=== PATIENT | female | born 1965 | race Caucasian/White ===

== ENCOUNTER → 2022-01-17 10:33 | Outpatient (CLI) | payer OTHER, SELFPAY ==
--- NOTE | 2022-01-17 10:42 | XR_ITS ---
FINAL REPORT CLINICAL HISTORY: right knee pain FINDINGS: RIGHT KNEE 4 views of the right knee were obtained. There is no acute fracture or dislocation. There are moderate hypertrophic changes at the medial joint margin. There is marked narrowing of the medial compartment joint space. There is moderately advanced patellofemoral joint space narrowing. There is a prominent osteophyte along the undersurface of the patella. There appear to be small intra-articular loose bodies in the anterior joint space measuring up to 1 cm. IMPRESSION: Advanced medial and patellofemoral joint space narrowing consistent with osteoarthritis with intra-articular loose bodies. Reviewed, Interpreted and Dictated by Dante Dos Santos MD Transcribed by Kalee Muir Authenticated and [facility]
== END ==
PROVIDERS: Visit Provider Orthopaedic Surgery
DX: M25.561 Pain in right knee (principal)
CPT/HCPCS: 73564

== ENCOUNTER → 2023-04-02 08:26 | Outpatient (CLI) | payer OTHER, SELFPAY ==
--- NOTE | 2023-04-02 08:51 | XR_ITS ---
FINAL REPORT CLINICAL HISTORY: Pre Op, SOA COMPARISON: None FINDINGS: Two views of the chest were obtained. The heart size and pulmonary vascularity are within normal limits. The mediastinum is normal. No acute pulmonary abnormality is identified. There is no pneumothorax. The bony thorax is intact. IMPRESSION: No active cardiopulmonary disease. Reviewed, Interpreted and Dictated by Marc Elam III, MD Transcribed by Marisa Agee Authenticated and [facility]
[2023-04-02 09:07] LABS: Basophils % 0.5 % (0.1-2.0); Eosinophils # 0.2 K/mm3 (0.0-0.4); Eosinophils % 3.5 % (0.1-12.0); Hematocrit 43.5 % (37.0-47.0); Hemoglobin 14.1 g/dL (12.2-16.2); Lymphocytes # 1.4 K/mm3 (0.7-4.5); Lymphocytes % 25.4 % (10-50); Mean Corpuscular HGB Conc 32.4 g/dL (31.8-35.4); Mean Corpuscular Hemoglobin 27.7 pg (27.0-31.2); Mean Corpuscular Volume 85.3 fl (81-99); Mean Platelet Volume 8.8 fl (7.4-10.4); Monocytes # 0.4 K/mm3 (0.1-1.0); Monocytes % 6.4 % (1.7-9.3); Neutrophils # 3.7 K/mm3 (1.8-7.8); Neutrophils % 64.3 % (37.0-80.0); Platelet Count 230 K/mm3 (142-424); White Blood Count 5.7 K/mm3 (4.8-10.8)
--- NOTE | 2023-04-02 09:12 | ECG_ITS ---
APPROVED REPORT Exam: Resting ECG HR:63 bpm ECG Measurements Heart Rate 63 AXES MS 162 P 65 QRSd 96 QRS 66 QT 375 T 46 QTc 382 Conclusion SINUS RHYTHM LOW QRS VOLTAGE IN PRECORDIAL LEADS [QRS DEFLECTION < 1.0 mV IN CHEST LEADS] BORDERLINE ECG UNCONFIRMED REPORT Electronically signed by : Damien Diallo MD 04/02/2023 17:35:18
[2023-04-02 10:46] LABS: Chloride 106 mmol/L (98-107)
[2023-04-02 10:47] LABS: Potassium 4.4 mmoL/L (3.5-5.1); Sodium 139 mmol/L (136-145)
[2023-04-02 10:49] LABS: Alanine Aminotransferase 25 U/L (12-78); Alkaline Phosphatase 78 U/L (38-126); Anion Gap 8.4 mEq/L (5-15); Aspartate Amino Transferase 36 U/L (14-36); Bilirubin,Total 0.7 mg/dl (0.2-1.3); Blood Urea Nitrogen 15 mg/dl (7-17); Carbon Dioxide 29 mmol/L (22.0-30.0); Estimated Glomerular Filt Rate 73 ml/min (>60); GFR (African American) 89 ML/MIN (>60)
[2023-04-02 10:50] LABS: Albumin Level 4.1 g/dl (3.5-5.0); Albumin/Globulin Ratio 1.6 (1.1-1.8); Calcium 9.4 mg/dl (8.4-10.2); Globulin 2.6 g/dL (1.3-3.2); Glucose 85 mg/dl (74-100); Total Protein,Serum 6.7 g/dl (6.3-8.2)
== END ==
PROVIDERS: PCP Family Medicine; Visit Provider Orthopaedic Surgery
DX: Z01.818 Encounter for other preprocedural examination (principal); M17.11 Unilateral primary osteoarthritis, right knee; Z79.899 Other long term (current) drug therapy
CPT/HCPCS: 36415; 71046; 80053; 83036; 85025; 93005

== ENCOUNTER 2023-04-10 06:18 | Observation (INO) | payer OTHER, SELFPAY ==
[2023-04-06 13:28] VITALS: BMI 28.8
[2023-04-10] VITALS (18 sets, daily range): BP systolic 99–145; BP diastolic 35–86; PULSE 63–107; RESP 14–18; TEMP 36.1–37.1; O2SAT 96–100
--- NOTE | 2023-04-10 07:21 | EXP.ANES.CKL ---
[facility] Disclaimer: The information contained in this section may have been updated after the patient was seen, as this information can be updated by other users. Medical History No significant past medical history Surgical History History of appendectomy History of cholecystectomy History of colonoscopy History of knee replacement History of tonsillectomy Family History Other Family history of diabetes mellitus type II Family history of hyperlipidemia Family history of hypertension Lung cancer Social History Smoking Status: Never smoker second hand exposure: No alcohol intake: current substance use type: denies use current occupational status: retired Travel in the last 8 weeks: None [facility] Anesthesia Checklist Patient Identification Patient Identification: Arm Band and Verbal (Name & ) Structural Data Admitted From: Home Planned Operative Procedure/s: TKA Consent for Planned Operative Procedure(s) Verified: Yes NPO Status Verified Time NPO: 00:00 Chart Verification Results Verified: CBC and BMP Additional verifications Anesthesia Reactions: Yes (nausea) Hx Blood Transfusions: No Blood Transfusion Reaction: No Airway Assessment Mallampati Score:: Class I C-Spine Mobility Assessed: Yes TMJ Mobility Assessed: Yes Dentition: Good Dentition Neurological Assessment Level of Consciousness: Awake Hx Seizures: No Numbness or tingling in extremities: No Anesthesia Plan Anesthesia Risk discussed: Yes Anesthesia Plan: Verified ASA Class: I Anesthesia Type: MAC w/Spinal
--- NOTE | 2023-04-10 09:53 | EXP.OP.NOTE ---
Date of procedure: 04/10/23 Pre-op Diagnosis:: Right knee osteoarthritis Post-op Diagnosis:: Right knee osteoarthritis Procedure performed:: Right total knee arthroplasty Surgeon:: Delon Lainez MD Student Counselor(s):: None SHELL WORKER:: Tahira Meyers Anesthesia: regional, local and spinal Estimated blood loss (mL): 5 Clinical Note:: Nuha is a very pleasant 58-year-old female with activity limiting right knee pain secondary to osteoarthritis that is affecting her quality of life. No relief with a cortisone injection in December. No relief with meloxicam. History of a left knee replacement in [place] in 2007 that is doing well. Recently moved here from [place]. Not interested in any further injections. She has done a low-impact home exercise program. Right knee x-rays in December revealed severe tricompartmental degenerative changes with complete loss of medial joint space and marginal osteophyte formation in a varus knee. We discussed all the risks, benefits and alternatives to right total knee arthroplasty and she agreed to proceed. Surgical consent form was signed. Operative findings:: Right knee severe tricompartmental degenerative changes with complete loss of medial joint space and marginal osteophyte formation with varus deformity. Operative note:: The patient was seen in the preoperative holding area. The right knee was marked to confirm the correct operative site. She was seen by anesthesia. She received Ancef 2 g IV prophylactic antibiotics within 1 hour of incision time. She also received a gram of IV TXA just prior to the incision and as we were closing to help minimize bleeding. She was brought back to the OR. Spinal was performed without difficulty. IV sedation given throughout the case. She was placed in the supine position. A bump was placed underneath the right hip. Nonsterile tourniquet applied to the right thigh. Right lower extremity prepped and draped in usual sterile fashion. Timeout performed to confirm right total knee arthroplasty on patient Nuha Morton. The right lower extremity was exsanguinated with an Esmarch and tourniquet was inflated to 300 mmHg. With the knee flexed I made a midline incision with a 10 blade scalpel. Full-thickness medial and lateral flaps were elevated. With a fresh 10 blade I made a medial parapatellar arthrotomy. The patella was everted. Patella fat pad and anterior femoral fat pads were excised with the Bovie. A medial release was performed with the Bovie. Marginal osteophytes were removed. Z retractors were placed medially and laterally. Whitesides line was marked. The distal femur was then drilled. I placed the intramedullary distal femoral cutting guide set at a 5 degree valgus cut to remove approximately centimeter of bone from the distal femur. This cut was made with oscillating saw. The femur was then sized to a size 6 set at 3 degrees of external rotation. The 4-in-1 cutting guide was pinned in place. I made the anterior and posterior cuts and the chamfer cuts with oscillating saw. We then turned our attention to the tibia. I placed a PCL retractor and medial and lateral Hohmann retractors. With the extramedullary tibial cutting guide set at the 3 degree posterior slope we excised about 5 mm of bone from the low medial side and a centimeter from the high lateral side with the oscillating saw. Medial and lateral menisci and posterior osteophytes were removed. With a 10 mm block we achieved full extension and flexion with excellent alignment. We finished preparation of the tibia and the tibia was sized to a size 5 tibial tray centered off the medial third of the tibial tubercle. This tray was pinned in place and the pins were impacted. We then placed the size 6 trial femur. The box cut was made with the reamer and punch. We then placed a 10 mm trial poly. With the trial components in place there was full extension and flexion with excellent alignment and stable throughout.
--- NOTE | 2023-04-10 10:06 | XR_ITS ---
PROCEDURE INFORMATION: Exam: XR Right Knee Exam date and time: 04/10/2023 6:04 PM Age: 58 years old Clinical indication: Device placement; Joint replacement hardware; Additional info: S/P right tka TECHNIQUE: Imaging protocol: Radiologic exam of the right knee. Views: 1 or 2 views. COMPARISON: No relevant prior studies available. FINDINGS: Bones/joints: Status post total knee arthroplasty. The patient is status post patellar resurfacing. Soft tissues: Soft tissue swelling and subcutaneous gas with surgical wrapping in place. IMPRESSION: Postsurgical changes without acute injury or hardware abnormality.
--- NOTE | 2023-04-10 12:05 | PC.NURSE ---
COURTESY NOTE: afternoon round completed on pt. pt denies needing assistance at this time. call loreto within reach. Harish SRNA
--- NOTE | 2023-04-10 13:29 | HMH.OTEV ---
OT Inpatient Evaluation Rehab OT IP Evaluation Start: 04/10/23 10:07 Freq: ONCE Status: Active [facility]Rec: 04/10/23 13:29 [facility] [id number]) Rehab OT IP Assessment Subjective History Pt oriented x 3 on arrival. Pt agreeable to engage in therapy evaluation. Pt admitted on 04/10/23 following a Right total knee arthroplasty. Nuha is a very pleasant 58-year-old female with activity limiting right knee pain secondary to osteoarthritis that is affecting her quality of life. No relief with a cortisone injection in December. No relief with meloxicam. History of a left knee replacement in [place] in 2007 that is doing well. Recently moved here from [place]. Not interested in any further injections. Prior to surgery, pt lived at home with her significant other. Pt claims she is normally independent with all ADLs and IADLs. She does not use any type of AE during functional transfers. She also still drives. Subjective I will have help at home. Objective Patient Orientation Person,Place,Birthday Right Upper Extremity Gross ROM WFL Left Upper Extremity Gross ROM WFL Bed Mobility bed mobility-scooting,bed mobility - supine/sit Assist Level Minimal x 1 (25% assist) Transfer Training Sit/Stand Transfer Assist Level Contact Guard/Hand Hold Rehab OT IP prob,goals,plan Problems Date of Evaluation: 04/10/23 OT IP Problems Bed Mobility,Transfers,Balance ,Self care,Safety Rehab Potential Rehab Potential Good Equipment Needs Assistive Devices Rolling / Wheeled Walker Plan OT intervention Plan Bed Mobility,Transfers,Balance ,Self care,Safety,Therapeutic Exercise OT Plan Frequency BID Duration LOS Discharge Goals Bed Mobility Ability Standby Assistance Sit
--- NOTE | 2023-04-10 13:56 | HMH.PTEV ---
Physical Therapy Evaluation Rehab PT IP Evaluation Start: 04/10/23 10:07 Freq: ONCE Status: Active Protocol: Document 04/10/23 13:37 [facility] (Rec: 04/10/23 13:56 [facility] [id number]) Subjective/History History History Patient is a 58 year old female admitted to [facility] S/P 04/21 S/P R TKA. Patient previously independent with all ADL's/IADL's. No AD required previously for ambulation. Patient lives at home with her boyfriend. Previous hx of L TKA. Subjective Subjective I don't feel anything really right now. New diagnosis of cancer in past 12 No months? Rehab PT IP Eval Objective Appearance Patient Behavior Appropriate,Cooperative Patient Orientation Person,Place,Birthday Difficulty following instructions none Speech Pattern Clear,Appropriate Ambulation Patient Able to Ambulate No Balance Ability to Arise Able, uses arms to help Sitting Balance Steady, safe Standing Balance Steady, wide stance Dynamic Sitting Balance Ability Normal Dynamic Standing Balance Ability Good Transfers Bed Transfer Ability Minimal x 1 (25% assist) Sit to Stand Bed Transfer Ability Contact Guard/Hand Hold Pain Knee Pain Intensity 0 ROM RLE PT ROM Status ABN MMT RLE PT MMT ABN Rehab PT IP prob,goals,plan Problems Date of Evaluation: 04/10/23 PT IP Problems Bed Mobility,Transfers,Gait, Balance,Self care,Safety Rehab Potential Rehab Potential Good Equipment Needs Assistive Devices None / NA Plan PT Intervention Plan Bed Mobility,Transfers,Gait, Balance,Self care,Safety, Therapeutic Exercise PT Plan Frequency BID Duration LOS Discharge Goals Bed Transfer Ability Supervision/Stand by Sit to Stand Chair Transfer Ability Supervision/Stand by Ambulation Distance (feet) 20 Discharge Plan PT Discharge Plan PT suggests patient is a good candidate for discharge to home with home health or progress to outpatient PT when found medically stable by . Eval Complexity Eval Charge Codes 04404 - High Complexity
--- NOTE | 2023-04-10 13:59 | EXP.HP ---
History of Present Illness *Admission Date: 04/10/23 *Reason for visit:: Status post right TKA *History of present illness: Ms. Betts is a 58-year-old female with chronic pain of her right knee and primary osteoarthritis. She has been seeing orthopedics as an outpatient with no improvement from symptomatic treatment and conservative medical management. She presented to orthopedics and was scheduled for right total knee arthroplasty today. Had left knee replaced in 2007 without issue. Patient has no underlying medical conditions. Tolerated procedure well without any complication. Admitted to medicine afterward for further management overnight. After arrival to the floor, patient has minimal pain. Stable on room air. No nausea or vomiting or chest pain. [facility] Disclaimer: The information contained in this section may have been updated after the patient was seen, as this information can be updated by other users. Medical History No significant past medical history Surgical History History of appendectomy History of cholecystectomy History of colonoscopy History of knee replacement History of tonsillectomy Family History Family history of hypertension Family history of diabetes mellitus type II Lung cancer Family history of hyperlipidemia Social History Smoking Status: Never smoker second hand exposure: No alcohol intake: current substance use type: denies use current occupational status: retired Travel in the last 8 weeks: None Review of Systems Review of Systems Review of systems (narrative): 14 point review of systems performed, pertinent positives and negatives as per [facility] Meds Home Medications and Allergies Home Medications Medication Instructions Recorded Confirmed Type aspirin 325 mg tablet 325 mg PO DAILY #20 tabs 04/10/23 04/10/23 Rx aspirin 325 mg tablet 325 mg PO ONCE #20 tabs 04/10/23 04/10/23 Rx oxycodone 5 mg tablet 5 mg PO Q4H PRN pain #30 tabs 04/10/23 04/10/23 Rx New Prescriptions to Start Prescriptions: aspirin 325 mg tablet aspirin 325 mg tablet oxycodone 5 mg tablet Allergies Allergy/AdvReac Type Severity Reaction Status Date / Time codeine Allergy Rash Verified 04/10/23 06:22 Penicillins Allergy Rash Verified 04/10/23 06:22 Exam Data for Last 24 hours Vital signs and Labs for Last 24 Hours: Temp Pulse Resp BP Pulse Ox O2 Del Method O2 Flow Rate 97 F L 91 H 14 130/73 99 Room Air 3 04/10/23 10:05 04/10/23 10:05 04/10/23 10:05 04/10/23 10:05 04/10/23 10:05 04/10/23 10:05 04/10/23 09:55 I & O for Last 24 hours: Intake & Output 04/07/23 04/08/23 04/09/23 04/10/23 23:59 23:59 23:59 23:59 Intake Total 120 / 120 Balance 120 / 120 Constitutional Constitutional: no acute distress and average body habitus *Routine HEENT Exam Head: Present normocephalic Eye: Present EOMI and PERRL ENT: Present mucous membranes moist *Routine Neck Exam Neck: Present supple; Absent lymphadenopathy *Routine Respiratory Exam Respiratory: Present CTA bilaterally *Routine Cardiovascular Exam Cardiovascular: Present RRR *Routine Abdominal Exam Abdominal: Present soft and normoactive bowel sounds; Absent tenderness *Routine Rectal Exam Rectal:: deferred *Routine Genitalia Exam Genitalia:: deferred *Routine Extremities Exam Extremities: Absent cyanosis, clubbing or edema Comments: Neurovascularly intact distal and feet bilaterally, well-healed scar over left knee. Right knee in postop bandage. *Routine Skin Exam Skin: Present warm; Absent rash *Routine Neurological Exam Neurological: Present alert, oriented X3 and moving all extremities; Absent altered mental status Assessment and Plan *Assessment and plan (1) P
--- NOTE | 2023-04-10 14:00 | PC.NURSE ---
Rounded on patient. No needs or concerns at this time;
--- NOTE | 2023-04-10 18:49 | PC.NURSE ---
Patient new admit from PACU. Patient admitted with a rt total knee replacement. Patient had c/o pain after arriving on unit. Patient has nut had uop since arriving to unit MD aware. Patient states she will try in a few minutes. Patient A&Ox4 and VSS.
[2023-04-11] VITALS: BP 123/65; PULSE 89; RESP 16; TEMP 37.1; O2SAT 100
[2023-04-11 04:00] VITALS: BP 103/53; PULSE 93; RESP 18; TEMP 37.1; O2SAT 96; BMI 30.6
[2023-04-11 06:26] LABS: Chloride 109 mmol/L (98-107); Sodium 136 mmol/L (136-145)
[2023-04-11 06:29] LABS: Alanine Aminotransferase 36 U/L (12-78); Albumin Level 3.1 g/dl (3.5-5.0); Albumin/Globulin Ratio 1.3 (1.1-1.8); Alkaline Phosphatase 62 U/L (38-126); Aspartate Amino Transferase 44 U/L (14-36); Bilirubin,Total 0.6 mg/dl (0.2-1.3); Blood Urea Nitrogen 12 mg/dl (7-17); Carbon Dioxide 26 mmol/L (22.0-30.0); Creatinine Clearance Estimated 144 mL/min (50-200); Estimated Glomerular Filt Rate 102 ml/min (>60); GFR (African American) 123 ML/MIN (>60); Globulin 2.4 g/dL (1.3-3.2); Glucose 113 mg/dl (74-100); Total Protein,Serum 5.5 g/dl (6.3-8.2)
[2023-04-11 06:30] LABS: Magnesium 1.9 mg/dl (1.6-2.3)
--- NOTE | 2023-04-11 07:32 | EXP.DC.SUM ---
General Admission date:: 04/10/23 Discharge date: 04/11/23 HPI HPI HPI: Ms. Betts is a 58-year-old female with chronic pain of her right knee and primary osteoarthritis. She has been seeing orthopedics as an outpatient with no improvement from symptomatic treatment and conservative medical management. She presented to orthopedics and was scheduled for right total knee arthroplasty today. Had left knee replaced in 2007 without issue. Patient has no underlying medical conditions. Tolerated procedure well without any complication. Admitted to medicine afterward for further management overnight. After arrival to the floor, patient has minimal pain. Stable on room air. No nausea or vomiting or chest pain. Hospital Course Hospital Course Hospital Course: 58-year-old female with primary osteoarthritis of her knees. Status post right TKA today. Discussed case with orthopedics, request admission for observation overnight, early mobilization, and management of pain. Medicine agreed to admit for further management. Hemodynamically stable at this time. No issues overnight. Stable for discharge home. Plan for outpatient therapy. Problems addressed as follows: Primary osteoarthritis of right knee Status post TKA right knee -Tolerated procedure well. Orthopedics has sent medications for discharge home including pain regimen and aspirin. Will continue aspirin 325 mg daily for 3 weeks postop DVT prophylaxis. Stable overnight. Tolerating oxycodone 5 for pain control. PT and OT evaluated, referral sent for outpatient PT in [place]. Stable for discharge home with follow-up with orthopedics in the next 2 weeks. Exam Data for Last 24 hours Vital signs and Labs for Last 24 Hours: Temp Pulse Resp BP Pulse Ox O2 Del Method O2 Flow Rate 98.8 F 93 H 18 103/53 L 96 Room Air 3 04/11/23 04:00 04/11/23 04:00 04/11/23 04:00 04/11/23 04:00 04/11/23 04:00 04/11/23 07:00 04/10/23 09:55 Laboratory Results - last 24 hr 04/11/23 05:55: Sodium 136, Potassium 4.0, Chloride 109 H, Carbon Dioxide 26, Anion Gap 5.0, BUN 12, Creatinine 0.60, Estimated Creat Clear 144, Estimated GFR 102, Est GFR ( Amer) 123, Glucose 113 H, Calcium 8.0 L, Magnesium 1.9, Total Bilirubin 0.6, AST 44 H, ALT 36, Alkaline Phosphatase 62, Total Protein 5.5 L, Albumin 3.1 L, Globulin 2.4, Albumin/Globulin Ratio 1.3 I & O for Last 24 hours: Intake & Output 04/08/23 04/09/23 04/10/23 04/11/23 23:59 23:59 23:59 23:59 Intake Total 360 / 360 1989 Output Total 400 / 400 Balance -40 / -40 1989 Weight 91.58 kg Constitutional Constitutional: no acute distress *Routine HEENT Exam Head: Present normocephalic Eye: Present EOMI and PERRL ENT: Present mucous membranes moist *Routine Neck Exam Neck: Present supple; Absent lymphadenopathy *Routine Respiratory Exam Respiratory: Present CTA bilaterally; Absent rhonchi, wheezes or crackles *Routine Cardiovascular Exam Cardiovascular: Present RRR *Routine Abdominal Exam Abdominal: Present soft and normoactive bowel sounds; Absent tenderness *Routine Extremities Exam Extremities: Absent cyanosis, clubbing or edema Comments: Right leg in postsurgical wrap, neurovascularly intact in feet. No edema. *Routine Skin Exam Skin: Present warm; Absent rash *Routine Neurological Exam Neurological: Present alert, oriented X3 and moving all extremities; Absent altered mental status Results Data Completed and Pending Labs on day of discharge: Labs from last 24 hours 04/11/23 05:55 Sodium 136 Potassium 4.0 Chloride 109 H Carbon Dioxide 26 Anion Gap 5.0 BUN 12 Creatinine 0.60 Estimated Creat Clear 144 Estimated GFR 102 Est GFR ( Amer) 123 Glucose 113 H Calcium 8.0 L Magnesium 1.9 Total Bilirubin 0.6 AST 44 H ALT 36 Alkaline Phosphatase 62 Total Protein 5.5 L Albumin 3.1 L Globulin 2.4 Albumin/Globulin Ratio 1.3 DS: Diagnosis Discharge
[2023-04-11 07:41] LABS: Basophils % 0.4 % (0.1-2.0); Eosinophils # 0.1 K/mm3 (0.0-0.4); Eosinophils % 0.9 % (0.1-12.0); Lymphocytes # 0.9 K/mm3 (0.7-4.5); Lymphocytes % 12.4 % (10-50); Mean Corpuscular HGB Conc 33.4 g/dL (31.8-35.4); Mean Corpuscular Hemoglobin 27.7 pg (27.0-31.2); Mean Corpuscular Volume 82.9 fl (81-99); Monocytes # 0.7 K/mm3 (0.1-1.0); Monocytes % 10.3 % (1.7-9.3); Neutrophils # 5.3 K/mm3 (1.8-7.8); Platelet Count 178 K/mm3 (142-424); Red Blood Count 3.98 M/mm3 (4.20-5.40); Red Cell Distribution Width 14.1 % (11.5-17.5)
[2023-04-11 07:42] VITALS: BP 119/69; PULSE 87; RESP 17; TEMP 36.9; O2SAT 96
--- NOTE | 2023-04-11 09:56 | SW/DCPLANNER ---
The plan for this patient is to return home w/ her friend in [place] and go to outpatient PT in [place]. Patient will discharge home today.
--- NOTE | 2023-04-12 07:29 | EXP.ANES.II ---
[facility] Anesthesia Record Part II Anesthesia Record Part II Discharge Time: 10:05 Destination: Medical Surgical Department PACU nurse assessment reviewed?: Yes Patient Condition:: Good Anesthesia Complications:: None Swallowing reflex intact?: Yes Airway Patency: Patent Cyanosis?: No Blood Pressure: 130/73 SaO2: 99 Respiratory Rate: 14 Pulse Rate: 91 Temperature: 97 F Mental Status: Alert & Oriented Pain level:: 0 Nausea and/or vomitting:: None Intake, IV Amount: 0 Hydration: Adequate
[2023-04-12 07:30] VITALS: BP 130/73; PULSE 91; RESP 14; TEMP 36.1; O2SAT 99
--- NOTE | 2023-04-12 13:02 | CARE MANAGER ---
Contacted patient related to hospital discharge. She states she is doing well, just has to take her time doing things. She denies any questions or concerns. She has her pain medication and is aware of follow up appointments. CHELLY Dumont
== END 2023-04-11 12:19 | disposition home or self-care (01) ==
LOC: 2ND 06:18
PROVIDERS: Admitting Provider Orthopaedic Surgery; PCP Family Medicine; Visit Provider Internal Medicine Adolescent Medicine
PROC: (CPT 27447; principal; 2023-04-10 07:30)
DX: M17.11 Unilateral primary osteoarthritis, right knee (principal); M25.561 Pain in right knee
CPT/HCPCS: 27447; 36415; 73560; 80053; 83735; 85025; 96374; 97163; 97166; 97530; C1713; C1776; G0378; J2405

== ENCOUNTER 2023-05-02 14:21 | Outpatient (CLI) | payer OTHER, SELFPAY ==
--- NOTE | 2023-05-02 14:29 | XR_ITS ---
FINAL REPORT CLINICAL HISTORY: Rt Knee replacement COMPARISON: None FINDINGS: Three views of the right knee reveal no evidence of fracture or dislocation. The patient has undergone a prior total knee arthroplasty. The bony alignment is normal. There is no evidence of joint effusion. Mild soft tissue calcifications are noted. IMPRESSION: Total knee arthroplasty. No acute abnormality identified. Reviewed, Interpreted and Dictated by Marc Elam III, MD Transcribed by Ayleen Clark Authenticated and [facility]
== END 2023-05-02 23:59 ==
LOC: RAD 14:22
PROVIDERS: PCP Family Medicine; Visit Provider Orthopaedic Surgery
DX: Z96.651 Presence of right artificial knee joint (principal)
CPT/HCPCS: 73562

== ENCOUNTER 2023-06-14 11:00 | Outpatient (RCR) | payer OTHER, SELFPAY ==
--- NOTE | 2023-04-16 12:40 | HMH.PTOPEV ---
PT Outpatient Evaluation Rehab PT Outpatient Evaluation Start: 04/16/23 11:52 Freq: Status: Active Protocol: Document 04/16/23 11:52 PDESEROUX (Rec: 04/16/23 12:39 PDESEROUX [id number]) E-signed By Marek Suarez, PT Outpatient Therapy Subjective History Subjective History Pt. is a 58 year old female who presents to [facility] Outpatient Physical Therapy Services in [place] for the initial evaluation this date(04/16/23) w/ c/o acute and constant RLE knee post-surgical edema, P!, and weakness S/P RLE TKA on 04/10/23. Pt. reports spending the night in the hospital post surgery, then going home the next day on 04/11/23. Pt. reports seeing Physical Therapy the day of surgery and the day after prior to being discharged home. Pt. reports icing RLE knee all day. Pt. reports ambulating short distances at home at this time , states back and forth to the bathroom. Pt. reports RTMD(Surgeon) 05/12/23, RTMD to PCP(Dr. Herman) 04/26/23. Current medications include Aspirin and Oxycodone. PMH includes S/P LLE TKA, Tonsillectomy, Appendectomy, Cholecystectomy, and family history of lung cancer(father) . New diagnosis of cancer in past 12 No months? Chief Complaint Pain,Spasms,Stiff,Swelling, Gives out/Unstable,Paresthesia ,Weakness Symptom Type Ache,Dull,Stabbing,Burning, Numbness Symptoms Relieved By Rest/Positioning,Ice,Brace/ Support,Prescription Meds Symptoms Aggravated By Standing,Bending/Stooping, Physical Activity,Twisting, Walking,Lifting Prior Functional Limitations None Current Functional Limitations Lifting,Housework,Dressing, Driving,Sleeping,Standing, Sitting,Squatting,Recreation Activity,Walking,Stairs, Bending/Stooping Symptom Description Constant but Variable,Activity Dependent Level of pain today (0-10) 2 Pain scale - at its best (0-10) 1 Pain scale - at its worst (0-10) 7 Hip/Knee Eval Gait Observation General Gait Pattern Observation Antalgic Gait,Decrease Weight Bear (L),Decrease Stride Lngth (R) Assistive Device Assistive Devices Rolling / Wheeled Walker Palpation Tenderness right Knee Palpation Finding Tenderness,Spasm,Muscle Guarding Knee Palpation Overall Comment grade 4 +TTP to vastus medialis/lateralis, medial jt. line, pes anserine MMT Hip Flexion Strength Grade 3- Fair- Hip Abduction Strength Grade 3+ Fair+ Hip Adduction Strength Grade 3+ Fair+ Hip Extension Strength Grade 3+ Fair+ Gluteus Arik Strength Grade 3+ Fair+ Hip External Rotation Strength Grade 3- Fair- Hip Internal Rotation Strength Grade 3- Fair- Knee Extension Strength Grade 3 Fair Knee Flexion Strength Grade 3 Fair Knee Extensors Muscle Tone Description Severe Hypertonicity Knee Flexors Muscle Tone Description Severe Hypertonicity Hip Extensors Muscle Tone Description Severe Hypertonicity Hip Flexors Muscle Tone Description Severe Hypertonicity ROM Knee Extension Active Range of Motion ( +17 degrees) Knee Extension Passive Range of Motion ( +15 degrees) Knee Flexion Active Range of Motion ( 58 degrees) Knee Flexion Passive Range of Motion ( 63 degrees) Knee ROM Limitations Soft Tissue Tightness,Muscle Weakness,Muscle Tone,Pain Sensation Comment decreased light touch sensation lateral violet- surgical incision Effusion joint effusion knee exam standard right 5cm Proximal Circumference Measure (cm) 55 5cm Distal Circumference Measure (cm) 43 Outpatient Therapy Assessment Impairments Problems/Impairmments Palpation Tenderness,Impaired Range of Motion,Impaired Strength,Impaired Endurance, Impaired Transfers,Impaired Gait Pattern,Impaired Walking, Impaired Standing,Impaired Driving,Impaired Dressing, Impaired Shower/Bathing, Impaired Household Care, Impaired Stair Climbing, Impaired Incline Stepping, Impaired Stepping on Uneven Surface,Impaired Squatting, Impaired Bending,Impaired Recreational Activities, Increased Edema,Subjective C/O Pain,Impaired Self Care/Self Management Prognosis Rehab Potential Good Comment w/ HEP compliancy Clinical Impression Consistent with Diagnosis Yes Consistent with S/P RLE TKA Short Term Goals Number of Weeks 2 Decreased Palpation Tenderness Yes: grade 1-2 +TTP to TTP assessment above Decrease Subjective C/O Pain Yes: worse:09/06 Patient to be Ind w/ HEP 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 Number of Weeks 6-8 Decreased Palpation Tenderness Yes: grade 1 +TTP to TTP assessment above Increase Range of Motion Yes: 0-120 RLE knee A/PROM Increase Strength Yes: 4+ to 5/5 RLE knee MMT scores grossly Improve Gait Pattern without Assistive Yes Device Increase Ability to Walk Yes Increase Ability to Stand Yes Improve Ability to Climb Stairs Yes Improve LEFI Score Yes Decrease Edema Yes Decrease Subjective C/O Pain Yes: worse:-06/09 Improve Self Care/Self Management Yes Patient to be Ind w/ Advanced HEP Yes Outpatient Therapy Plan of Care Treatment Plan May Include Therapeutic Exercise Including Home Yes Exercise Program Manual Therapy Techniques Yes Neuromuscular Re-education Yes Therapeutic Activities to Return to Yes Previous Functional/Work Level Gait Training Yes ADL/Self Care Education Yes Dry Needling Yes Thermal Modalities Yes Electrical Stimulation Yes Ultrasound/Phonophoresis Yes Iontophoresis Yes Vasopneumatic Compression Pump Yes Massage Yes Eval/Re-Eval Yes Frequency Times per week 2-3 Duration Number of Weeks 6-8 Addendums This patient is a candidate for social No or vocational rehab? Patient/Guardian verbally acknowledges Yes understanding of treatment program and consents to further treatment? Patient/Guardian verbally acknowledges Yes understanding of diagnosis, prognosis and goals for treatment? Eval Complexity PT Charges 95237 - Low Complexity Shoulder/Elbow Eval Shoulder Objective Measurements Elbow Objective Measurements PHYSICIAN CERTIFICATION: I certify the specified therapy services for Nuha Betts are required, authorized, and reviewed every 30 days.
== END 2023-06-27 07:45 | disposition home or self-care (01) ==
LOC: PT 11:00
PROVIDERS: PCP Family Medicine; Visit Provider Orthopaedic Surgery
DX: M25.561 Pain in right knee (principal); Z96.651 Presence of right artificial knee joint
CPT/HCPCS: 97010; 97014; 97110; 97116; 97140; 97163; 97164; 97530; G0283

== ENCOUNTER 2023-06-15 10:52 | Outpatient (CLI) | payer OTHER, SELFPAY ==
--- NOTE | 2023-06-15 10:56 | XR_ITS ---
FINAL REPORT CLINICAL HISTORY: rt knee pain FINDINGS: Right knee Three views were obtained. There is no acute fracture or dislocation. Patient is status post knee arthroplasty. There is a moderate joint effusion. No soft tissue swelling is seen. IMPRESSION: Moderate joint effusion. Reviewed, Interpreted and Dictated by Marc Elam III, MD Transcribed by Francisca Lyles Authenticated and [facility]
== END 2023-06-15 23:59 ==
LOC: RAD 10:52
PROVIDERS: PCP Family Medicine; Visit Provider Orthopaedic Surgery
DX: M25.561 Pain in right knee (principal); Z96.651 Presence of right artificial knee joint
CPT/HCPCS: 73562

== ENCOUNTER 2023-10-19 10:26 | Outpatient (CLI) | payer OTHER, SELFPAY ==
--- NOTE | 2023-10-19 10:34 | XR_ITS ---
FINAL REPORT CLINICAL HISTORY: Right TKA COMPARISON: 06/15/2023 FINDINGS: There is no acute fracture or dislocation. Patient is status post arthroplasty. The hardware is unremarkable. IMPRESSION: No acute process. Reviewed, Interpreted and Dictated by Nathanael Wheat MD Transcribed by Francisca Lyles Authenticated and [facility]
== END 2023-10-19 23:59 | disposition home or self-care (01) ==
LOC: RAD 10:27
PROVIDERS: PCP Family Medicine; Visit Provider Orthopaedic Surgery
DX: M25.561 Pain in right knee (principal)
CPT/HCPCS: 73562

== ENCOUNTER 2024-04-07 09:10 | Outpatient (CLI) | payer OTHER, SELFPAY ==
--- NOTE | 2024-04-07 09:13 | XR_ITS ---
FINAL REPORT CLINICAL HISTORY: right knee tka 04-10-2023 COMPARISON: 10/19/2023 FINDINGS: Three views of the right knee reveal no evidence of fracture or dislocation. The bony alignment is normal. The patient is status post right total knee arthroplasty. There is a moderate joint effusion. No localized soft tissue abnormality is identified. IMPRESSION: Postoperative changes from right total knee arthroplasty with a moderate joint effusion. Reviewed, Interpreted and Dictated by Marc Elam III, MD Transcribed by Yasmin Duran Authenticated and . [facility]
== END 2024-04-07 23:59 | disposition home or self-care (01) ==
LOC: RAD 09:11
PROVIDERS: PCP Family Medicine; Visit Provider Physician Assistant
DX: Z47.1 Aftercare following joint replacement surgery (principal); Z96.651 Presence of right artificial knee joint
CPT/HCPCS: 73562

== ENCOUNTER 2024-05-15 09:21 | Outpatient (CLI) | payer OTHER, SELFPAY ==
--- NOTE | 2024-05-15 09:25 | XR_ITS ---
FINAL REPORT CLINICAL HISTORY: Lt Shoulder Pain COMPARISON: None FINDINGS: Two views show no evidence of acute displaced fracture or dislocation of the visualized bony architecture. The joint spaces appear normal. IMPRESSION: Unremarkable exam. Reviewed, Interpreted and Dictated by Nathanael Wheat MD Transcribed by Ayleen Clark Authenticated and [facility]
== END 2024-05-15 23:59 | disposition home or self-care (01) ==
LOC: RAD 09:22
PROVIDERS: PCP Family Medicine; Visit Provider Physician Assistant
DX: M25.512 Pain in left shoulder (principal)
CPT/HCPCS: 73030

== ENCOUNTER 2024-06-19 11:00 | Outpatient (RCR) | payer OTHER, SELFPAY ==
--- NOTE | 2024-06-06 14:16 | HMH.OTOPEV ---
OT Inpatient Evaluation Rehab OT Outpatient Eval Start: 06/06/24 13:25 Freq: Status: Active Protocol: Document 06/06/24 13:27 [id number] (Rec: 06/06/24 13:56 MARY [id number]) E-signed By Bela Gregory, OT Outpatient Therapy Subjective History Subjective History 59 year old female referred to skilled OP OT services for L shld pain since May 2023. Patient reported intermittent pain in the L shld during positional of reaching behind back, sleeping and lifting. Patient had an x-ray on with no findings. No f/u with ortho at this time. Chief Complaint Pain Symptoms Relieved By Nothing Symptoms Aggravated By Physical Activity Prior Functional Limitations None Current Functional Limitations Reaching,Lifting,Recreation Activity Symptom Description Intermittent Level of pain today (0-10) 0 Pain scale - at its best (0-10) 0 Pain scale - at its worst (0-10) 8 Shoulder/Elbow Eval Shoulder Objective Measurements Shoulder ROM Left Shoulder Abduction Active Range of 140 Motion (degrees) Shoulder Flexion Active Range of Motion 130 (degrees) Query Text: Shoulder External Rotation Active Range 40 of Motion (degrees) Shoulder Internal Rotation Active Range 40 of Motion (degrees) pain with active ROM shoulder exam left standard Shoulder MMT Shoulder Abduction Strength Grade 3- Fair- Shoulder Extension Strength Grade 3- Fair- Shoulder Flexion Strength Grade 3- Fair- Shoulder Horizontal Abduction Strength 3- Fair- Grade Shoulder Horizontal Adduction Strength 3- Fair- Grade Infraspinatus/Teres Minor Strength Grade 3- Fair- Shoulder External Rotation Strength 3- Fair- Grade Shoulder Internal Rotation Strength 3- Fair- Grade Elbow Objective Measurements QuickDASH Activities Please rate your ability to do the following activities in the last week by selecting the number below the appropriate response. 1. Open a tight or new jar. Mild difficulty 2. Do heavy imposer (e.g., wash No difficulty bacon, floors). 3. Carry a shopping bag or briefcase. No difficulty 4. Wash your back. No difficulty 5. Use a knife to cut food. No difficulty 6. Recreational activities in which you Mild difficulty take some force or impact through your arm, shoulder, or hand (e.g., golf, hammering, tennis, etc.). 7. During the past week, to what extent Moderately has your arm, shoulder or hand problem interfered with your normal social activities with family, friends, neighbors or groups? 8. During the past week, were you Moderately limited limited in your work or other regular daily activites as a result of your arm, shoulder or hand problem? 9. Arm, shoulder or hand pain. Severe 10. Tingling (pins and needles) in your None arm, shoulder or hand. 11. During the past week, how much Mild difficulty difficulty have you had sleeping because of the pain in your arm, shoulder or hand? 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 Number of Weeks 4 Increase Range of Motion Yes: Improve AROM of L UE shld flexion: 150; abd: 160; er: 60; ir: 60 Increase Strength Yes: Improve L UE shld strength to 4-/5 to 4/5 throughout Decrease Subjective C/O Pain Yes: 6/10 pain at worst Patient to be Ind w/ HEP Yes: AROM Patient to be Ind w/ Advanced HEP Yes: Advance strengthening Improve Quick Dash Score Yes: 17 Outpatient Therapy Plan of Care Treatment Plan May Include Therapeutic Exercise Including Home Yes Exercise Program Manual Therapy Techniques Yes Therapeutic Activities to Return to Yes Previous Functional/Work Level Thermal Modalities Yes Electrical Stimulation Yes Ultrasound/Phonophoresis Yes Iontophoresis Yes Eval/Re-Eval Yes Aquatic Therapy Yes Frequency Times per week 2x/wk Duration Number of Weeks 4 weeks Addendums This patient is a candidate for social No or vocational rehab? Patient/Guardian verbally acknowledges Yes understanding of treatment program and consents to further treatment? Patient/Guardian verbally acknowledges Yes understanding of diagnosis, prognosis and goals for treatment? Eval Complexity OT Charge 73208 - Low Complexity PHYSICIAN CERTIFICATION: I certify the specified therapy services for Nuha J Ankeny are required, authorized, and reviewed every 30 days.
== END 2024-06-19 23:59 | disposition home or self-care (01) ==
LOC: OT 11:00
PROVIDERS: PCP Family Medicine; Visit Provider Physician Assistant
DX: M77.8 Other enthesopathies, not elsewhere classified (principal)
CPT/HCPCS: 97014; 97035; 97110; 97140; 97165; 97530; G0283

== ENCOUNTER 2024-07-29 10:05 | Outpatient (CLI) | payer OTHER, SELFPAY ==
[2024-07-29 10:10] LABS: Hexagonal Phase Phospholipid ND; PTT-LA Incub Mix ND; PTT-LA Mix ND; dRVVT Confirm ND; dRVVT Mix ND
[2024-07-29 10:34] LABS: Basophils # 0.1 K/mm3 (0-0.2); Eosinophils # 0.2 K/mm3 (0.0-0.4); Eosinophils % 2.9 % (0.1-12.0); Hematocrit 43.1 % (37.0-47.0); Lymphocytes # 1.2 K/mm3 (0.7-4.5); Lymphocytes % 19.9 % (10-50); Mean Corpuscular HGB Conc 32.5 g/dL (31.8-35.4); Mean Corpuscular Hemoglobin 27.1 pg (27.0-31.2); Mean Corpuscular Volume 83.4 fl (81-99); Mean Platelet Volume 10.4 fl (7.4-10.4); Monocytes # 0.6 K/mm3 (0.1-1.0); Monocytes % 9.3 % (1.7-9.3); Neutrophils % 66.6 % (37.0-80.0); Platelet Count 251 K/mm3 (142-424); Red Blood Count 5.17 M/mm3 (4.20-5.40); White Blood Count 5.9 K/mm3 (4.8-10.8)
[2024-07-29 10:54] LABS: Albumin Level 4.4 g/dl (3.5-5.0); Chloride 109 mmol/L (98-107)
[2024-07-29 10:55] LABS: Potassium 4.7 mmoL/L (3.5-5.1); Sodium 142 mmol/L (136-145)
[2024-07-29 10:57] LABS: Alanine Aminotransferase 22 U/L (12-78); Albumin/Globulin Ratio 1.8 (1.1-1.8); Anion Gap 9.7 mEq/L (5-15); Aspartate Amino Transferase 31 U/L (14-36); Blood Urea Nitrogen 15 mg/dl (7-17); Carbon Dioxide 28 mmol/L (22.0-30.0); Estimated Glomerular Filt Rate 73 ml/min (>60); GFR (African American) 88 ML/MIN (>60); Globulin 2.4 g/dL (1.3-3.2); Total Protein,Serum 6.8 g/dl (6.3-8.2)
[2024-07-29 10:58] LABS: Alkaline Phosphatase 90 U/L (38-126); Bilirubin,Total 0.4 mg/dl (0.2-1.3); Calcium 9.5 mg/dl (8.4-10.2); Chol/HDL Ratio 2.4 (1-3.5); Cholesterol 175 mg/dl (140-200); Glucose 87 mg/dl (74-100); HDL Cholesterol 72 mg/dl (40-60); Triglycerides 76 mg/dl (30-150); VLDL Cholesterol 15 mg/dL (0-40)
[2024-07-29 11:06] LABS: Erythrocyte Sedimentation Rate 18 mm/hr (0-30); Hemoglobin A1C 5.2 % (4.0-6.0)
[2024-07-29 11:08] LABS: C-Reactive Protein 4.8 mg/L (0-4)
[2024-07-29 11:09] LABS: Direct LDL Cholesterol 75.69 mg/dL (100-129)
[2024-07-29 11:14] LABS: 25-OH Vitamin D, Total 31.9 ng/mL (30-100)
[2024-07-29 11:17] LABS: Triiodothryronine (T3) Uptake 29 % (23.5-40.5)
[2024-07-29 11:18] LABS: Free Thyroxine Index 3.4 ug/dL (5.93-13.13); T4 (Thyroxine) 11.8 ug/dl (5.53-11.0)
[2024-07-29 11:31] LABS: Thyroid Stimulating Hormone 2.38 uIU/mL (0.465-4.68)
[2024-07-29 11:38] LABS: HIV Combo NEGATIVE (Negative)
[2024-07-29 11:52] LABS: Hepatitis C Ab Qual. W/ RFX NEGATIVE (Negative)
[2024-07-29 12:32] LABS: Vitamin B12 250 pg/mL (239-931)
[2024-07-30 08:13] LABS: RA Latex Turbid. 18.9 IU/mL (<14.0)
[2024-07-30 12:20] LABS: Anti-Centromere B Antibodies <0.2 AI (0.0-0.9); Anti-DNA (DS) Ab Qn <1 IU/mL (0-9); Anti-Jo-1 <0.2 AI (0.0-0.9); Anti-Smith Antibody <0.2 AI (0.0-0.9); Antichromatin Antibodies <0.2 AI (0.0-0.9); Antiscleroderma-70 Antibodies <0.2 AI (0.0-0.9); RNP Antibodies <0.2 AI (0.0-0.9); Sjogren's Anti-SS-A <0.2 AI (0.0-0.9); Sjogren's Anti-SS-B <0.2 AI (0.0-0.9)
[2024-07-30 15:14] LABS: Endomysial IgA Antibody Negative (Negative)
[2024-07-30 16:20] LABS: Deamidated Gliadin Abs, IgA 3 units (0-19); Deamidated Gliadin Abs, IgG 2 units (0-19); Tissue Transglutaminase IgA Ab <2 U/mL (0-3); Tissue Transglutaminase IgG Ab 3 U/mL (0-5)
[2024-07-30 17:24] LABS: Lupus Reflex Interpretation Comment: (.); PTT-LA 40.2 sec (0.0-43.5); dRVVT 44.1 sec (0.0-47.0)
[2024-08-01 07:10] LABS: Reticulin IgA Antibody Negative titer (Neg:<1:2.5)
== END 2024-07-29 23:59 | disposition home or self-care (01) ==
LOC: LAB 10:06
PROVIDERS: PCP Nurse Practitioner Family; Visit Provider Nurse Practitioner Family
DX: R10.84 Generalized abdominal pain (principal); R53.83 Other fatigue; Z11.59 Encounter for screening for other viral diseases; Z11.4 Encounter for screening for human immunodeficiency virus [HIV]; M25.512 Pain in left shoulder
CPT/HCPCS: 36415; 80053; 80061; 82306; 82533; 82607; 83036; 83516; 84436; 84443; 84479; 85025; 85613; 85651; 85732; 86140; 86225; 86235; 86255; 86256; 86431; 86803; 87389

== ENCOUNTER 2024-08-06 16:39 | Outpatient (CLI) | payer OTHER, SELFPAY ==
--- NOTE | 2024-08-06 17:00 | MM_ITS ---
PROCEDURE INFORMATION: Exam: Bilateral Screening 3D Mammography Exam date and time: 08/06/2024 4:45 PM Age: 59 years old Clinical indication: Screening examination. TECHNIQUE: Imaging protocol: Bilateral Screening tomosynthesis and 2D mammography including computer-aided detection (CAD) when performed. COMPARISON: Screening digital mammography with tomosynthesis 12/22/2020 8:54 AM FINDINGS: MAMMOGRAPHY: Breast composition: There are scattered areas of fibroglandular density. Mass: None. Architectural distortion: None. Calcifications: No suspicious calcifications. Asymmetric density: None. Skin thickening: None. Axillary adenopathy: None. IMPRESSION: No mammographic evidence of malignancy. Annual screening is recommended unless otherwise clinically indicated. ASSESSMENT: BI-RADS Category 1: Negative.
== END 2024-08-06 23:59 | disposition home or self-care (01) ==
LOC: RAD 16:39
PROVIDERS: PCP Nurse Practitioner Family; Visit Provider Nurse Practitioner Family
DX: Z12.31 Encounter for screening mammogram for malignant neoplasm of breast (principal)
CPT/HCPCS: 77063; 77067

== ENCOUNTER 2025-02-24 09:09 | Outpatient (CLI) | payer OTHER, SELFPAY ==
--- OUTSIDE RECORDS SUMMARY | 2025-02-25 12:31 | XMS_ITS | Clinical Summary ---
Author Organization Healthcare Address [address] [place] [address] Care Team Providers Care Video Surveillance Technician Name Role Phone Tano Herman MD Primary Care Provider Dolores vailable Allergies Active Allergy Reactions Criticality Noted Date Comments Codeine Rash Low 08/19/2024 Penicillins Rash Low 08/19/2024 Medications cyanocobalamin 500 MCG tablet Take 1 tablet by mouth daily. Active cholecalciferol (Vitamin D-3) 50 MCG (2000 UT) capsule Take 1 capsule by mouth. Active Immunizations Immunization Administration Dates Next Due Influenza, injectable, MDCK, preservative free, quadrivalent 02/21/2023,02/21/2022 Influenza, seasonal, injectable, preservative fr ee 01/31/2024 Social History Tobacco Use Types Packs/Day Years Used Date Smoking Tobacco: Never Smokeless Tobacco: Never Alcohol Use Standard Drinks/Week Comments Defer 0 (1 standard drink = 0.6 oz pur e alcohol) PHQ-2 Answer Date Recorded Patient Health Questionnaire-2 Score 0 08/19/2024 PHQ-9 Answer Date Recorded Patient Health Questionnaire-9 Score 0 08/19/2024 Comments Unknown Sex and Gender Information Value Date Recorded Sex Assigned at Not on file Legal Sex Female 11:04 AM EDT Gender Identity Not on file Sexual Orientation Not on file Last Filed Vital Signs Vital Sign Reading Time Taken Comments Blood Pressure 128/82 08/19/2024 10:17 AM EDT Pulse 67 08/19/2024 10:17 AM EDT Temperature 36.8 C (98.3 F) 08/19/2024 10:17 AM EDT Respiratory Rate 16 08/19/2024 10:17 AM EDT Oxygen Saturation 95% 08/19/2024 10:17 AM EDT Inhaled Oxygen Concentration - - Weight 103 kg (227 lb 1.2 oz) 08/19/2024 10:17 A M EDT Height 172.7 cm (5' 8 ) 08/19/2024 10:17 AM EDT Body Mass Index 34.53 08/19/2024 10:17 AM EDT Plan of Treatment Health Maintenance Due Date Last Done Comments [facility]-HIV Screening 1965 [facility]-Infant/Child/Adol SDOH Screenings 1965 [id number] Vaccine (#1) 01/09/1968 [facility]- SDOH Screenings 1981 [facility]-Adult SDOH Screenings 1981 [facility]-DTaP,Tdap,and Td Vaccine s (1 - Tdap) 1982 [facility]-Pap Smear 01/09/1984 [facility]-Cervical Cancer Screening 1993 [facility]-HPV/Cotest 1993 CT Colonography 01/09/2008 Colonoscopy 01/09/2008 FIT-DNA 01/09/2008 FIT 01/09/2008 FOBT 01/09/2008 Sigmoidoscopy 01/09/2008 [facility]-Colorectal Cancer Screening 01/09/2008 [facility]-Breast Cancer Screening 2013 [facility]-Pneumococcal Vaccine: 50 + Years (1 of 1 - PCV) 2013 [facility]-Zoster Vaccines (1 of 2) 2013 [facility]-RSV Vaccine: 60+ Years o r (1 - Risk 60-74 years 1-dose series) 2023 [facility]-Influenza Vaccine (#1) 12/29/202401/30, 02/21/2023, 02/21/2022 [facility]-Depression Screening 08/19/2025 025, 08/19/2024 [facility]-Hepatitis C Screening Completed 08/19/2024 [facility]-Obesity Intervention Completed 08/19/2024 HPV Vaccines Aged Out No longer eligi ble based on patient's age to complete this topic [facility]-HIB Vaccines Aged Out No longer e ligible based on patient's age to complete this topic [facility]-Hepatitis A Vaccines Aged Out No longer eligible based on patient's age to complete this topic [facility]-IPV Vaccines Aged Out No longer e ligible based on patient's age to complete this topic [facility]-Rotavirus Vaccines Aged Out No lo nger eligible based on patient's age to complete this topic Procedures Procedure Name Priority Date/Time Associated Diagnosis Comments ACUTE HEPATITIS PANEL Routine 08/19/2024 11:44 AM EDT Rheumatoid factor positive from Last 3 Months or Most Recently Relevant to Health Maintenance Results * Acute Hepatitis Panel (08/19/2024 11:44 AM EDT) Hepatitis B Surf Antigen Negative Negative 08/19/2024 3:32 PM EDT [facility] Hepatitis C Antibody Negative Negative 08/19/2024 3:32 PM EDT [facility] Hepatitis A Antibody IgM Negative Negative 08/19/2024 3:32 PM EDT [facility] Hepatitis B Core Antibody IgM Negative Negative 08/19/2024 3:32 PM EDT [facility] Blood Venous blood specimen / Unknown Venipuncture / Unknown 08/19/2024 11:44 AM EDT 08/19/2024 11:45 AM EDT us Jana Savage APRN LAB BLOOD ORDERABLES Final Result Performing Organization Address City/State/[facility] Co de Phone Number [facility] [address] [place] [address] from Last 3 Months or Most Recently Relevant to Health Maintenance Insurance [facility] Care Teams Video Surveillance Technician Relationship Specialty Start Date End Date Tano Herman MD PCP - General Family Medicine 08/07/24
== END 2025-02-24 23:59 | disposition home or self-care (01) ==
LOC: LAB.DROPOF 02-25 12:29
PROVIDERS: PCP Nurse Practitioner Family; Visit Provider Nurse Practitioner Family
DX: N32.89 Other specified disorders of bladder (principal)
CPT/HCPCS: 87086